=== PATIENT | male | born 1990 | race Caucasian/White ===

== ENCOUNTER 2018-07-25 23:53 | Emergency (ER) | payer MEDICAID ==
--- NOTE | 2018-07-26 00:27 | C.PDOC ---
History Of Present Illness Patient presents to ED with complaint of feeling depressed and having thoughts of hurting himself. Patient stopped taking his medication 6 months after being [facility]. Patient denies suicidal plan and homicidal ideation. Time Seen by Provider: 07/26/18 00:26 Chief Complaint (Nursing): Psychiatric Evaluation History Per: Patient History/Exam Limitations: no limitations Onset/Duration Of Symptoms: Worse Since, Other (6 months) Current Symptoms Are (Timing): Still Present Suicide/Self Injury Attempted (Context): None Modifying Factor(s): None Severity: None Pain Scale Rating Of: 0 Associated Symptoms: Depression, Suicidal Thoughts. denies: Suicidal Plan, Other (homicidal ideation) Involuntary Hold By: None Recent travel outside of the [place]: No Additional History Per: Patient Past Medical History Reviewed: Historical Data, Nursing Documentation, Vital Signs Vital Signs: Last Vital Signs Temp 98.6 F 07/25/18 23:59 Pulse 89 07/25/18 23:59 Resp 16 07/25/18 23:59 BP 127/80 07/25/18 23:59 Pulse Ox 97 07/25/18 23:59 Primary Care Provider: Murtaza Mackenzie - Medical History PMH: Depression Surgical History: No Surg Hx Family History: States: Unknown Family Hx - Social History Hx Alcohol Use: No Hx Substance Use: No - Immunization History Hx Influenza Vaccination: No Hx Pneumococcal Vaccination: No Review Of Systems Constitutional: Negative for: Fever, Chills, Weakness Cardiovascular: Negative for: Chest Pain Respiratory: Negative for: Cough, Shortness of Breath Gastrointestinal: Negative for: Nausea, Vomiting, Abdominal Pain Neurological: Negative for: Numbness Psych: Positive for: Depression, Suicidal ideation. Negative for: Other (homicidal ideation or suicidal plan) Physical Exam - Physical Exam Appears: Non-toxic, No Acute Distress, Other (depressed affect) Skin: Warm, Dry Head: Normacephalic Eye(s): bilateral: Normal Inspection Oral Mucosa: Moist Neck: Trachea Midline, Supple Chest: Symmetrical Cardiovascular: Rhythm Regular Respiratory: No Rales, No Rhonchi, No Wheezing Gastrointestinal/Abdominal: Bowel Sounds (normoactive), Soft, No Tenderness, No Distention Extremity: Capillary Refill <2 Sec Extremity: Bilateral: Normal Color And Temperature Pulses: Left Dorsalis Pedis: Normal, Right Dorsalis Pedis: Normal Neurological/Psych: Oriented x3 Gait: Steady ED Course And Treatment - Laboratory Results Result Diagrams: 07/26/18 01:43 07/26/18 01:43 O2 Sat by Pulse Oximetry: 97 (in RA) Pulse Ox Interpretation: Normal Progress Note: As per Dr marcus, Pt is to AMA, since he refuses admission, and follow up with [facility] Against Medical Advice - AMA Patient Left Against Medical Advice: The patient declines admission to the hospital and wishes to leave the Emergency Department. This action is against my medical advice. This decision was made with informed refusal. The patient was told that admission to the hospital is necessary. Explanation of the reasons why were discussed. The risks of leaving were explained to the patient and include, but are not limited to, worsening of known or currently unknown conditions, permanent disability and from undiagnosed or untreated conditions. The patient has the capacity to make this informed decision and understands my explanation of the current medical problem and risks of leaving. The patient voluntarily accepts these risks and signed an AMA form documenting our conversation. The patient was given the opportunity to ask questions and reconsider. The patient was encouraged to return to the Emergency Department at any time for further care. Disposition Counseled Patient/Family Regarding: Studies Performed, Diagnosis, Need For Followup - Disposition Disposition: AGAINST MEDICAL ADVICE Disposition Time: 00:26 Condition: FAIR Instructions: Adjustment Disorder, Marijuana Use and Addiction (DC) Forms: [employer] (Yakut) - Clinical Impression Clinical Impression: Adjustment disorder with depressed mood, Cannabis use disorder, moderate, dependence - Scribe Statement The provider has reviewed the documentation as recorded by the Scribe (Dee Reilly) All medical record entries made by the Scribe were at my direction and personally dictated by me. I have reviewed the chart and agree that the record accurately reflects my personal performance of the history, physical exam, medical decision making, and the department course for this patient. I have also personally directed, reviewed, and agree with the discharge instructions and disposition.
[2018-07-26 01:57] LABS: SQUAMOUS EPITHIAL < 1 /hpf (0-5); URINE BILIRUBIN NEGATIVE (NEGATIVE); URINE CLARITY Clear (Clear); URINE COLOR Yellow (YELLOW); URINE GLUCOSE (UA) NORMAL (Normal); URINE LEUKOCYTE ESTERASE NEG Leu/uL (Negative); URINE PROTEIN NEGATIVE (NEGATIVE); URINE UROBILINOGEN NORMAL mg/dL (0.2-1.0)
[2018-07-26 01:59] LABS: URINE BLOOD NEGATIVE (NEGATIVE)
[2018-07-26 02:01] LABS: ALB/GLOB RATIO 1.2 (1.0-2.1); ALBUMIN 4.6 g/dL (3.5-5.0); ALT/SGPT 44 U/L (21-72); AST/SGOT 37 U/L (17-59); BLOOD UREA NITROGEN 15 mg/dL (9-20); CALCIUM 9.6 mg/dl (8.6-10.4); GFR NON-AFRICAN AMERICAN > 60
[2018-07-26 02:02] LABS: BASO % 1.1 % (0.0-2.0); EOS # 0.2 K/uL (0.0-0.7); EOS % 4.7 % (0.0-4.0); HEMOGLOBIN 14.5 g/dL (12.0-18.0); LYMPH # 1.9 K/uL (1.0-4.3); MEAN CELL VOLUME 86.1 fL (80.0-94.0); MEAN CORPUSCULAR HEMOGLOBIN 29.9 pg (27.0-31.0); MEAN CORPUSCULAR HGB CONC 34.7 g/dL (33.0-37.0); MEAN PLATELET VOLUME 9.8 fL (7.2-11.7); MONO # 0.4 K/uL (0.0-0.8); MONO % 9.5 % (0.0-10.0); NEUT # 1.8 K/uL (1.8-7.0); NEUT % 40.7 % (50.0-75.0); NRBC % 0.2 % (0.0-2.0); RBC 4.85 Mil/uL (4.40-5.90); RED CELL DISTRIBUTION WIDTH 13.4 % (11.5-14.5); WHITE BLOOD COUNT 4.4 K/uL (4.8-10.8)
[2018-07-26 02:05] VITALS: BP 124/86; PULSE 69; RESP 18; TEMP 98.2
[2018-07-26 02:09] LABS: BARBITURATES, UR NEGATIVE (NEGATIVE); BENZODIAZEPINES, UR NEGATIVE (NEGATIVE); OPIATES, UR NEGATIVE (NEGATIVE); PHENCYCLIDINE, UR NEGATIVE (NEGATIVE)
[2018-07-26 02:44] VITALS: O2SAT 97
== END 2018-07-26 02:43 | disposition left against medical advice (07) ==
LOC: C.ER 23:53
DX: F43.21 Adjustment disorder with depressed mood (principal); F12.20 Cannabis dependence, uncomplicated